=== PATIENT | female | born 1940 | race Two or more races ===

== ENCOUNTER → 2019-10-09 | Outpatient (CLI) | payer MEDICARE ==
--- NOTE | 2019-10-09 11:31 | REP ---
CT paranasal sinuses: 10/09/2019. Indication: Sinusitis. Technique: Unenhanced axial CT images of the paranasal sinuses were performed with coronal reconstructions. Findings: There is mild diffuse left maxillary sinus periosteal mucosal thickening. There is soft tissue compromise of the left ostiomeatal complex. The patient is status post left turbinectomy. There is mild diffuse periosteal mucosal thickening of the left anterior and posterior ethmoid air cells as well as minimally within the left sphenoid sinus. The right sphenoethmoidal recess as well as the right ostiomeatal complex are patent. There is no significant paranasal sinus mucosal disease involving the frontal sinuses. The frontal recesses are patent. There is rightward deviation of the nasal septum. No air-fluid levels or frothy secretions are present within the paranasal sinuses. 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 Electronically Signed by Alfie Sanders DO 10/09/2019 11:22 A
== END ==
LOC: M RAD 07:59
PROVIDERS: ATTEND Otolaryngology
DX: J32.4 Chronic pansinusitis (principal)